=== PATIENT | female | born 1965 | race Caucasian/White ===

== ENCOUNTER 2016-09-14 10:44 | Inpatient (IN) | payer OTHER, MEDICAID ==
[~2016-09-14] VITALS: Ht 162.6 cm; Wt 61.7 kg
[2016-09-14 10:52] VITALS: BP 121/68; PULSE 88; RESP 16; TEMP 96.6; O2SAT 99
--- NOTE | 2016-09-14 11:00 | NUR ---
Patient to ER bed 2 to gown for evaluation. Side rails up. Report given to Amadou NAVA.
--- NOTE | 2016-09-14 11:03 | NUR ---
C/O right upper arm redness, 15cm x 10cm fluctuant mass which extends from mid-upper arm to axilla, with surrounding bright red swelling.
--- NOTE | 2016-09-14 11:05 | NUR ---
ER Dr. Chiu at bedside examining patient.
[2016-09-14] MEDS ORDERED: CALC260T7 PO (11:19)
[2016-09-14] MEDS ORDERED: VITD400 PO (11:19)
[2016-09-14] MEDS ORDERED: [UNRECOGNIZED DRUG - CODE] TP (11:22)
[2016-09-14] MEDS ORDERED: MULT PO (11:22)
[2016-09-14] MEDS ORDERED: TYLL650 PO (11:22)
[2016-09-14] MEDS ORDERED: GUAI100S14 PO (11:22)
[2016-09-14 11:31] LABS: EOSINOPHILS % (AUTO) 0.1 % (0.0-4.0); HEMATOCRIT 41.5 % (36-48); HEMOGLOBIN 13.6 g/dL (12.0-16.0); LYMPHOCYTES # (AUTO) 1.4 K/uL (1.0-5.5); LYMPHOCYTES % (AUTO) 10.6 % (20.5-51.5); MEAN CORPUSCULAR HEMOGLOBIN 31 pg (27-31); MEAN CORPUSCULAR HGB CONC 33 % (32-36); MEAN CORPUSCULAR VOLUME 94 fL (79.0-98.0); MONOCYTES # (AUTO) 0.9 K/uL (0.0-1.0); PLATELET COUNT (AUTO) 369 K/uL (130-430); RED CELL DISTRIBUTION WIDTH 11.7 % (9.0-15.0); WHITE BLOOD COUNT (AUTO) 12.8 K/uL (4.8-10.8)
[2016-09-14 11:32] LABS: CREATININE 0.64 mg/dL (0.55-1.30); POTASSIUM 3.6 mmol/L (3.5-5.1)
[2016-09-14 11:35] LABS: INR 1.1 (0.8-1.2); PROTHROMBIN TIME 11.8 SECS (9.5-12.5)
[2016-09-14 11:36] LABS: ALBUMIN 3.6 g/dL (3.4-4.8); TOTAL BILIRUBIN 0.4 mg/dL (0.0-1.0); TOTAL PROTEIN, SERUM 8.2 g/dL (6.4-8.3)
[2016-09-14 11:37] LABS: NEUTROPHILS # (AUTO) 10.5 K/uL (1.8-7.7); NEUTROPHILS % (AUTO) 82.3 % (40.0-70.0)
--- NOTE | 2016-09-14 11:40 | NUR ---
Medication reconciliation completed based upon medication list provided by caregiver.
[2016-09-14] MEDS ORDERED: CLINDAMYCIN 600 mg/50mL D5W 50 ML IV ONE (12:15)
--- NOTE | 2016-09-14 12:35 | NUR ---
# 20 gauge angiocath placed to RFA. Use of asceptic technique. Opsite placed over site. Blood return noted. Flushed with 10 cc of normal saline. No evidence of infiltration noted. Patient tolerated well.
--- NOTE | 2016-09-14 12:57 | NUR ---
Lab at bedside to draw Blood Cultures and Lactic Acid prior to start of antibiotics.
--- NOTE | 2016-09-14 13:13 | NUR ---
Delay to floor r/t difficult time getting IV access and lab stick.
--- NOTE | 2016-09-14 13:40 | NUR ---
Patient will be admitted to care of Dr. Reed. Admitted to Med/Surg unit. Will go to room 111. Belongings list completed. Summary report printed. Bedside report given to receiving RN.
--- NOTE | 2016-09-14 13:50 | NUR ---
ADMISSION: The patient, AR MONTAÑO, 51 y/o, F admitted by JAMIA HUNTLEY MD, was given written information regarding hospital policies, unit procedures and contact persons. Valuables were checked and REVIEWED.
[2016-09-14 13:55] VITALS: BP 125/83; PULSE 89; RESP 18; TEMP 97.8; O2SAT 95
--- NOTE | 2016-09-14 14:00 | NUR ---
INITIAL ASSESSMENT: SEEN PATIENT.WITH SISTER AT BEDSIDE.NON VERBAL,IV SALINE LOCK. REDNESS AT RIGHT INNER ARM. CONTINUE TO MONITOR.
[2016-09-14] MEDS ORDERED: ACETAMINOPHEN 650 MG/20.3 ML UDC PO PRN (14:15)
[2016-09-14] MEDS ORDERED: guaiFENesin 200 MG/10 ML UDC PO PRN (14:15)
--- NOTE | 2016-09-14 16:00 | NUR ---
ROUNDS: RESTING. STABLE.
[2016-09-14 16:45] VITALS: BP 115/63; PULSE 77; RESP 17; TEMP 98.6; O2SAT 98
--- NOTE | 2016-09-14 18:15 | NUR ---
MS ROUNDS: PATIENT SEEN BY DR HUNTLEY WITH ORDERS TO START LR AT 80CC/H AND IV UNASYN .FOR SURGICAL CONSULT C/O DR MONACO FOR ABSCESS RIGHT INNER BICEPS.FOR XRAY ,EKG AND BLOOD TEST IN AM.
--- NOTE | 2016-09-14 18:19 | NUR ---
SURGICAL CONSULT Spoke with Dr. Delfino louise ([phone]) for reason: abscess. Transferred call to BRANDY Dove.
[2016-09-14] MEDS ORDERED: DEXTROSE 50% JECT 50 ML DISP.SYRIN IVP PRN (18:30)
[2016-09-14] MEDS ORDERED: INSULIN REGULAR, HUMAN 100 UNITS/ML, 10 ML VIAL (novoLIN R) SUBCUT PRN (18:30)
--- NOTE | 2016-09-14 19:00 | NUR ---
CLOSING NOTES: SLEEPING DURING ROUNDS. STABLE. NO DISTRESS.
[2016-09-14 19:55] VITALS: BP 131/68; PULSE 81; RESP 18; TEMP 97; O2SAT 96
[2016-09-14] MEDS: LR 1,000 ML IV SCH (19:56)
[2016-09-14] MEDS: AMPICILLIN SODIUM/SULBACTAM NA 3 GM in NS 100 ML IV SCH (19:57)
--- NOTE | 2016-09-14 20:00 | NUR ---
NOTES; SEEN PT IN BED, EYES CLOSED. BILATERAL EYES BLINDNESS. RESPONSIVE TO TOUCH. NO ACUTE DISTRESS NOTED. VITAL SIGNS STABLE, AFEBRILE. CONTRACTED TO MARSHALL UPPER EXT. RT UPPER ARM CELLULITIS WITH REDNESS, WARM TO TOUCH. IV SALINE LOCK TO THE RT FOREARM. ORDERED IVF TO INFUSED. NO FACIAL GRIMACING OF PAIN NOTED. BED LOCKED AND IN LOW POSITION, SIDE RAILS UP X3, CALL LIGHT WITHIN REACH.
[2016-09-14] MEDS: LACTOBACILLUS RHAMNOSUS GG 1 CAP CAPSULE PO SCH (21:31)
[2016-09-14] MEDS: CALCIUM CARBONATE 650 MG TABLET PO SCH (21:31)
[2016-09-14] MEDS: ENOXAPARIN SODIUM 40 MG/0.4 ML SYRINGE SUBCUT SCH (21:32)
--- NOTE | 2016-09-14 21:39 | NUR ---
NOTES; SCHEDULED PO MEDICATION CRUSHED AND ADMINISTERED WITH APPLE SAUCE. PT TOLERATED MEDS WELL.
--- NOTE | 2016-09-14 23:15 | NUR ---
NOTES; INCONTINENT OF URINE. TOTAL BED BATH GIVEN, LINEN CHANGED. REPOSITIONED. SAFETY MEASURES IN PROGRESS.
[2016-09-15 00:14] VITALS: BP 101/50; PULSE 71; RESP 18; TEMP 98.4; O2SAT 99
[2016-09-15] MEDS: AMPICILLIN SODIUM/SULBACTAM NA 3 GM in NS 100 ML IV SCH ×5 (00:48→23:12)
--- NOTE | 2016-09-15 01:30 | NUR ---
NOTES; APPEARED TO BE SLEEPING, EYES CLOSED, RESPIRATION EVEN AND UNLABORED. NO ACUTE DISTRESS NOTED. NO FACIAL GRIMACING OF PAIN NOTED, REPOSITIONED. SAFETY MEASURES IN PROGRESS.
--- NOTE | 2016-09-15 03:30 | NUR ---
NOTES; APPEARED TO BE SLEEPING, EYES CLOSED, RESPIRATION EVEN AND UNLABORED. NO ACUTE DISTRESS NOTED. NO FACIAL GRIMACING OF PAIN NOTED, REPOSITIONED. SAFETY MEASURES IN PROGRESS.
[2016-09-15 05:11] VITALS: BP 107/56; PULSE 82; RESP 16; TEMP 97.9; O2SAT 97
--- NOTE | 2016-09-15 05:38 | NUR ---
NOTES; IV ON THE RT HAND OCCLUDED. OLD IV REMOVED WITH CATHETER TIP INTACT. NEW IV PLACED ON THE LEFT FOREARM, GAUGE 22. ORDERED IVF RESUMED. PT TOLERATED IV INSERTION WELL.
--- NOTE | 2016-09-15 07:20 | NUR ---
Initial notes: pt on bed resting. no distress noted. i.v. access patent. report received at bedside.
[2016-09-15 07:56] LABS: CALCIUM 8.3 mg/dL (8.4-11.0); CREATININE 0.57 mg/dL (0.55-1.30); POTASSIUM 3.9 mmol/L (3.5-5.1)
[2016-09-15 08:00] VITALS: BP 140/92; PULSE 77; RESP 16; TEMP 96.6; O2SAT 99
[2016-09-15 08:11] LABS: BASOPHILS % (AUTO) 0.4 % (0.0-2.0); EOSINOPHILS % (AUTO) 0.4 % (0.0-4.0); HEMATOCRIT 34.8 % (36-48); MEAN CORPUSCULAR HEMOGLOBIN 32 pg (27-31); MEAN CORPUSCULAR HGB CONC 34 % (32-36); MEAN CORPUSCULAR VOLUME 93 fL (79.0-98.0); MONOCYTES % (AUTO) 9.8 % (1.7-9.3); NEUTROPHILS # (AUTO) 7.2 K/uL (1.8-7.7); NEUTROPHILS % (AUTO) 69.4 % (40.0-70.0); PLATELET COUNT (AUTO) 282 K/uL (130-430); RED BLOOD CELL COUNT(AUTO) 3.74 MIL/uL (4.2-6.2); RED CELL DISTRIBUTION WIDTH 12.1 % (9.0-15.0); WHITE BLOOD COUNT (AUTO) 10.2 K/uL (4.8-10.8)
[2016-09-15] MEDS: LACTOBACILLUS RHAMNOSUS GG 1 CAP CAPSULE PO SCH ×2 (08:52→21:46)
[2016-09-15] MEDS: CHOLECALCIFEROL (VITAMIN D3) 2,000 UNIT TABLET PO SCH (08:52)
[2016-09-15] MEDS: MULTIVITAMINS TAB 1 TABLET PO SCH (08:53)
[2016-09-15] MEDS: CALCIUM CARBONATE 650 MG TABLET PO SCH ×2 (08:53→21:46)
[2016-09-15] MEDS ORDERED: TRIAMCINOLONE ACETONIDE 0.025% 15 GM CREAM.GM. TP SCH (09:00)
[2016-09-15] MEDS ORDERED: FLUOCINOLONE 0.01% TP SCH (09:00)
--- NOTE | 2016-09-15 09:01 | NUR ---
rounds: pt on bed awake. medication given with león. sister at bedside. plan of care discussed.
[2016-09-15] MEDS: LR 1,000 ML IV SCH ×2 (10:36→21:45)
--- NOTE | 2016-09-15 11:41 | NUR ---
rounds: pt sleeping. stable. sister at bedside.
[2016-09-15 12:50] VITALS: BP 109/67; PULSE 86; RESP 16; TEMP 96.4; O2SAT 99
--- NOTE | 2016-09-15 14:00 | NUR ---
room transfer: pt transferred to other room due to room mate isolation precaution. pt sister informed.
--- NOTE | 2016-09-15 16:49 | NUR ---
rounds: pt sleeping. no distress noted.
[2016-09-15 17:10] VITALS: BP 119/70; PULSE 84; RESP 17; TEMP 97.9; O2SAT 97
--- NOTE | 2016-09-15 18:00 | NUR ---
rounds: pt having dinner with feeding assist by OFFICE SUPPORT ASSISTANT. no distress noted.
--- NOTE | 2016-09-15 18:49 | NUR ---
closing notes: pt on bed resting. stable. needs attended. safety measures in placed. Report will be given at bedside.
--- NOTE | 2016-09-15 19:15 | NUR ---
OPENING NOTES PATIENT IS RESTING COMFORTABLY. EYES OPEN, ALERT TO NAME, TRACKS, NON-VERBAL. NO SIGNS OR SYMPTOMS OF ACUTE DISTRESS NOTED. IV PATENT AND INFUSING. BED IN LOWEST POSITION, BED ALARM ON, CALL LIGHT WITHIN REACH. WILL CONTINUE TO MONITOR.
[2016-09-15 20:10] VITALS: BP 124/54; PULSE 73; RESP 16; TEMP 98; O2SAT 94
--- NOTE | 2016-09-15 20:45 | NUR ---
DR MONACO CALLED SPOKE TO DR. MOANCO, HE ORDERED A DRAINING PROCEDURE FOR HER ABCESS FOR 09/16/16.
[2016-09-15] MEDS: ENOXAPARIN SODIUM 40 MG/0.4 ML SYRINGE SUBCUT SCH (21:46)
--- NOTE | 2016-09-15 22:10 | NUR ---
ROUNDS PATIENT IS SLEEPING COMFORTABLY WITH VISIBLE RISE AND FALL OF CHEST NOTED. NO SIGNS OR SYMPTOMS OF ACUTE DISTRESS NOTED. IV PATENT AND INFUSING. BED IN LOWEST POSITION, BED ALARM ON, CALL LIGHT WITHIN REACH. WILL CONTINUE TO MONITOR.
[2016-09-16] VITALS (13 sets, daily range): BP systolic 83–149; BP diastolic 51–76; PULSE 68–76; RESP 16–19; TEMP 97.2–98.3; O2SAT 92–99; Ht 162.6 cm; Wt 61.7 kg
--- NOTE | 2016-09-16 00:40 | NUR ---
ROUNDS PATIENT IS SLEEPING COMFORTABLY IN SEMI-FOWLERS POSITION, WITH VISIBLE RISE AND FALL OF CHEST NOTED. NO SIGNS OR SYMPTOMS OF ACUTE DISTRESS NOTED. IV PATENT AND INFUSING. BED IN LOWEST POSITION, BED ALARM ON, CALL LIGHT WITHIN REACH. WILL CONTINUE TO MONITOR.
--- NOTE | 2016-09-16 03:43 | NUR ---
ROUNDS PATIENT IS SLEEPING COMFORTABLY IN SEMI-PANDYA'S POSITION, WITH VISIBLE RISE AND FALL OF CHEST NOTED. NO SIGNS OR SYMPTOMS OF ACUTE DISTRESS NOTED. IV PATENT AND INFUSING. BED IN LOWEST POSITION, BED ALARM ON, CALL LIGHT WITHIN REACH. WILL CONTINUE TO MONITOR.
[2016-09-16] MEDS: AMPICILLIN SODIUM/SULBACTAM NA 3 GM in NS 100 ML IV SCH ×4 (05:45→18:24)
--- NOTE | 2016-09-16 05:55 | NUR ---
ROUNDS PATIENT IS SLEEPING COMFORTABLY IN SEMI-PANDYA'S POSITION, WITH VISIBLE RISE AND FALL OF CHEST NOTED. NO SIGNS OR SYMPTOMS OF ACUTE DISTRESS NOTED. IV PATENT AND INFUSING, SITE REVISED AND FLUSHES WELL. BED IN LOWEST POSITION, BED ALARM ON, CALL LIGHT WITHIN REACH. WILL CONTINUE TO MONITOR.
--- NOTE | 2016-09-16 06:33 | NUR ---
DR HUNTLEY PAGED LEFT MESSAGE FOR DR. HUNTLEY REGARDING LAB RESULT RECEIVED AT 0627 FROM ANGELLA IN LAB.
--- NOTE | 2016-09-16 06:46 | NUR ---
DR. HUNTLEY PAGED SECOND PAGE TO DR. HUNTLEY
--- NOTE | 2016-09-16 06:50 | NUR ---
DR. HUNTLEY RETURNED CALL AND PLACED T/O
[2016-09-16] MEDS: LR 1,000 ML IV SCH ×2 (07:45→20:15)
--- NOTE | 2016-09-16 07:50 | NUR ---
CLOSING NOTE GAVE REPORT AT BEDSIDE TO DAY SHIFT NURSE. ENDORSED CARE OF VANCO ORDER, FINALIZE OF SURGICAL CHECKLIST AND CONSENT WITH FAMILY. PATIENT IS AWAKE WITH EYES OPEN RESTING IN SEMI-PANDYA'S POSITION. IV PATENT AND INFUSING, NO SIGNS OF INFILTRATION NOTED. NO S/S OF DISTRESS NOTED. BED IN LOWEST POSITION, BED ALARM ON, CALL LIGHT WITHIN REACH. WILL ENDORSE CARE TO DAY SHIFT.
--- NOTE | 2016-09-16 08:00 | NUR ---
OPENING NOTES PT IS RESTLESS AND PULLED AWAY FROM ME WHEN I WAS TAKING HER VITALS. SHE IS A&O X 1 SHE REACTS TO HER NAME. SHE IS NON-VERBAL AND BLIND, BUT SHE TRACES I MOVE FROM ONE SIDE OF THE BED TO THE OTHER. VS STABLE, IV PATENT AND PATIENT IS CLEAN.. I DO NOT FEEL COMFORTABLE WITH HER ABILITY TO USE THE CALL LIGHT, BUT BED ALARM IS SET AND BED IS IN LOWEST POSITION
--- NOTE | 2016-09-16 08:17 | NUR ---
PATIENTS SISTER SANFORD AT BEDSIDE WAITING FOR DR MONACO TO SPEAK TO HER FOR INFORMED CONSENT.
[2016-09-16] MEDS: MULTIVITAMINS TAB 1 TABLET PO SCH (09:00)
[2016-09-16] MEDS: CALCIUM CARBONATE 650 MG TABLET PO SCH ×2 (09:00→21:36)
[2016-09-16] MEDS: LACTOBACILLUS RHAMNOSUS GG 1 CAP CAPSULE PO SCH ×2 (09:00→21:36)
[2016-09-16] MEDS: CHOLECALCIFEROL (VITAMIN D3) 2,000 UNIT TABLET PO SCH (09:00)
--- NOTE | 2016-09-16 09:38 | NUR ---
Nutrition Update Lazaro Scale 10 noted. Pt admitted for cellulitis. Diet: NPO BMI: 23.3 kg/m2 RD to follow per nutrition care standards.
--- NOTE | 2016-09-16 10:54 | NUR ---
DR MONACO AT BEDSIDE DR. SANCHEZ AT BEDSIDE INFORMED CONSENT RECEIVED AND SIGNED BY PT SISTER, SANFORD
--- NOTE | 2016-09-16 10:55 | NUR ---
PT TRANSPORTED IN BED TO SURGERY, SISTER ACCOMPANYING
--- NOTE | 2016-09-16 10:57 | NUR ---
DR Saleh notified that we do not have any UA on file, and that per family, due to autism, she does not tolerate catheter insertion unless she is mildly sedated which is what they do at her PCP No need for UA per Dr Saleh.
[2016-09-16] MEDS ORDERED: VANCOMYCIN HCL 750 MG in NS 250 ML IV SCH (11:00)
[2016-09-16] MEDS ORDERED: LR 1,000 ML IV SCH (11:22)
[2016-09-16] MEDS ORDERED: HYDROmorphone 2 MG/ML VIAL IVP PRN ×2 (11:30)
[2016-09-16] MEDS ORDERED: ONDANSETRON HCL 4 MG/2 ML VIAL IVP PRN (11:30)
[2016-09-16] MEDS ORDERED: MEPERIDINE HCL/PF 25 MG/ML DISP.SYRIN IVP PRN ×2 (11:30)
[2016-09-16] MEDS ORDERED: HYDROmorphone 1 MG INJ. 1 MG/ML AMPUL IVP PRN (11:30)
--- NOTE | 2016-09-16 12:30 | NUR ---
PT RETURNED TO BED FROM SURGERY VS STABLE AND SET TO CHECK IN 15 MINUTES, THEN 30 MINUTES X 2. PT LUNGS CLEAR AND PULSES ARE STRONG
[2016-09-16] MEDS ORDERED: PROPOFOL 200MG/ 20ML VIAL (DIPRIVAN) IV ONE (14:00)
[2016-09-16] MEDS ORDERED: SEVOFLURANE 15 MIN GAS INH ONE (14:00)
[2016-09-16] MEDS ORDERED: MIDAZOLAM HCL 5 MG/5 ML VIAL ONE (14:00)
[2016-09-16] MEDS ORDERED: MEPERIDINE HCL/PF 100 MG/ML AMP ONE (14:00)
[2016-09-16] MEDS ORDERED: LR 1,000 ML IV.SOLN IV ONE (14:00)
--- NOTE | 2016-09-16 14:00 | NUR ---
ROUNDS PT IN BED, SLEEPING. BED ALARM SET AND IN THE LOWEST POSITION
--- NOTE | 2016-09-16 16:00 | NUR ---
ROUNDS PT IN BED, STILL AWAKE BUT QUIET AND APPEARS COMFORTABLE
--- NOTE | 2016-09-16 16:03 | NUR ---
Social Service Note: MASTER FISHER received a call from Kayode Arrieta ([phone]) from the [facility]; Kayode asked to be update as pt's plan of care develops so that the [facility] can follow patient and make sure her programs/placement resumes when she is able. MASTER FISHER will update [facility] when DC plans are developed. MASTER FISHER will remain available for support and will follow up as needed.
--- NOTE | 2016-09-16 16:15 | NUR ---
Noted IV infiltrated while starting pts Unasyn which was late administration as patient was from surgery. Also noted hives on the area around it. Only medication that had infused was the vanco. IV discontinued. Jayce sutton MD about it.
--- NOTE | 2016-09-16 17:00 | NUR ---
Dr Reed making rounds notified him of hives to the area around the IV. The only medication patient received was the vancomycin . Informed Dr Reed about it. to order Benadryl. Will insert new IV.
[2016-09-16] MEDS ORDERED: MORPHINE 4 MG/ML INJ. SYRINGE IVP PRN (17:45)
[2016-09-16] MEDS ORDERED: DIPHENHYDRAMINE INJ 50 MG/ML VIAL IVP PRN (18:00)
--- NOTE | 2016-09-16 18:00 | NUR ---
ROUNDS/DC IV IV SITE IS NO LONGER PATENT. ATTEMPTED TO START A NEW LINE AT MULTIPLE SITES. CONTACTED DR HUNTLEY, WHO ORDERED A PICC LINE BE INSTALLED
--- NOTE | 2016-09-16 18:00 | NUR ---
IV MED HELD DUE TO LACK OF A PATENT IV SITE. PICC LINE ORDERED
--- NOTE | 2016-09-16 19:00 | NUR ---
CLOSING NOTE PT RESTING COMFORTABLY. VS IS STABLE. REPORT ENDORSED AT BEDSIDE ABOUT THE NEW ORDER TO HAVE A PICC LINE INSTALLED AND THAT IV MEDS HAVE BEEN HELD
--- NOTE | 2016-09-16 19:15 | NUR ---
change of shift.pt's intial assessment.apprised that pt.presents blind status.pt.is non verbal.2 attempt to reestablish an iv access line.picc line is ordered 2 communicate w/str;genoveva gunter 4 consent.room air pt.stable,calm.call light w/in pt's reach.
[2016-09-16 19:57] LABS: INR 1.1 (0.8-1.2); PROTHROMBIN TIME 11.7 SECS (9.5-12.5)
--- NOTE | 2016-09-16 20:00 | NUR ---
pt.assessed.v/s assessed.will attempt 2 reestablish an iv access.2 communicate w/str;genoveva gunter 4 consent: picc line placement.pt.repositioned.blankets;warmed applied upon pt.no distress/discomfort manifested.
--- NOTE | 2016-09-16 21:00 | NUR ---
2100p medications administered.no distress/discomfort manifested.
[2016-09-16] MEDS: ENOXAPARIN SODIUM 40 MG/0.4 ML SYRINGE SUBCUT SCH (21:38)
--- NOTE | 2016-09-16 22:00 | NUR ---
pt.assessed.pt.repositioned.pt.cleaned.blankets reapplied upon pt.call light placed w/in pt's reach.no distress/discomfort manifested.
--- NOTE | 2016-09-16 23:00 | NUR ---
i have reestablished an iv access line.have reconnected&continued the adminstration of the iv fluids. call nila w/in pt's rech.blankets reapplid upon pt.
--- NOTE | 2016-09-17 | NUR ---
pt.assessed.v/s assessed:values w/in normal limits.pt.repositioned.iv fluids infusing. blankets reapplied upon pt.call light placed w/in pt's reach. Addendum: 09/17/16 at 0333 by Nicholas Pinto RN no distress/discomfort manifested.
[2016-09-17 00:01] VITALS: BP 118/76; PULSE 73; RESP 16; TEMP 97.1; O2SAT 96
[2016-09-17] MEDS: AMPICILLIN SODIUM/SULBACTAM NA 3 GM in NS 100 ML IV SCH ×4 (00:12→17:04)
--- NOTE | 2016-09-17 02:00 | NUR ---
pt.assessed.pt.repositioned.iv fluids infusing.no discomfort/distress manifested. call light placed w/in pt's reach.
[2016-09-17 04:00] VITALS: BP 117/75; PULSE 71; RESP 16; TEMP 96.9; O2SAT 96
--- NOTE | 2016-09-17 04:00 | NUR ---
pt.assessed.v/s assessed:values w/in normal limits.pt.repositioned.no distress/discomfort manifested. iv fluids infusing.call light w/in pt's reach.
--- NOTE | 2016-09-17 06:00 | NUR ---
pt.assessed.pt.cleaned,blankets applied.pt.repositioned.rt.arm wound dsg saturated:clean,iodoform packing inserted,gauze applied w/ kerlix band.iv fluids infusing.blood glucose assessed:94mg/dl.call light placed w/in pt's reach.
[2016-09-17 07:22] LABS: BASOPHILS % (AUTO) 0.3 % (0.0-2.0); EOSINOPHILS # (AUTO) 0.1 K/uL (0.0-0.4); HEMATOCRIT 36.9 % (36-48); HEMOGLOBIN 12.6 g/dL (12.0-16.0); LYMPHOCYTES # (AUTO) 2.6 K/uL (1.0-5.5); LYMPHOCYTES % (AUTO) 43.2 % (20.5-51.5); MEAN CORPUSCULAR HEMOGLOBIN 32 pg (27-31); MEAN CORPUSCULAR HGB CONC 34 % (32-36); MEAN CORPUSCULAR VOLUME 92 fL (79.0-98.0); MONOCYTES # (AUTO) 0.7 K/uL (0.0-1.0); NEUTROPHILS # (AUTO) 2.7 K/uL (1.8-7.7); NEUTROPHILS % (AUTO) 43.5 % (40.0-70.0); PLATELET COUNT (AUTO) 356 K/uL (130-430); RED BLOOD CELL COUNT(AUTO) 4.01 MIL/uL (4.2-6.2); RED CELL DISTRIBUTION WIDTH 11.4 % (9.0-15.0); WHITE BLOOD COUNT (AUTO) 6.1 K/uL (4.8-10.8)
--- NOTE | 2016-09-17 07:30 | NUR ---
OPENING NOTE RECEIVED REPORT AT BEDSIDE. VITAL SIGNS ARE STABLE: HER BLOOD PRESSURE IS LOW BUT THIS IS NORMAL FOR HER. IV FLUSHES AND SHE DOES NOT APPEAR TO BE IN PAIN OR UNCOMFORTABLE. WILL CONTINUE TO MONITOR HER BP
[2016-09-17 07:37] LABS: CALCIUM 8.5 mg/dL (8.4-11.0); CREATININE 0.56 mg/dL (0.55-1.30); POTASSIUM 3.5 mmol/L (3.5-5.1)
[2016-09-17 08:00] VITALS: BP 121/68; PULSE 88; RESP 16; TEMP 96.3; O2SAT 95
[2016-09-17] MEDS: CALCIUM CARBONATE 650 MG TABLET PO SCH (08:23)
[2016-09-17] MEDS: CHOLECALCIFEROL (VITAMIN D3) 2,000 UNIT TABLET PO SCH (08:23)
[2016-09-17] MEDS: LACTOBACILLUS RHAMNOSUS GG 1 CAP CAPSULE PO SCH (08:24)
[2016-09-17] MEDS: MULTIVITAMINS TAB 1 TABLET PO SCH (08:24)
[2016-09-17] MEDS: LR 1,000 ML IV SCH (08:45)
--- NOTE | 2016-09-17 09:27 | NUR ---
DISCHARGE PLANNING DC planning order to arrange home health. Called and spoke with patient sister Dea [facility] [phone] who requested patient discharge to SNF prior to returning back to [facility]. Confirmed with Dea preferred SNF that was discussed with SHEYLA Crystal. SHEYLA made aware. Addendum: 09/17/16 at 0932 by Lynette STEINER Per SHEYLA Malin requested placement at [facility] or [facility]. Faxed SNF referrals will follow up on bed availability. Addendum: 09/17/16 at 1158 by Lynette STEINER Received call from patient sister Dea who is agreeable with patient discharge back to [facility] with home health. Dea advised [facility] to call patient nurse Sakshi [phone] to make home health arrangements. Called and spoke with patient nurse Sakshi who stated facility did not have preference in home health and requested she be contracted to make visit arrangements. Faxed [facility] spoke with Antonieta in intake dept who confirmed faxed referral was received and nursing staff will call Sakshi to make visit arrangements. Antonieta was provided with Sakshi contract number to make visit arrangements. BRANDY Martinez made aware patient nurse Sakshi at [facility] able to arrange transportation for patient discharge and requested to be notified [phone] or for time patient ready to be discharged. Addendum: 09/17/16 at 1459 by Lynette STEINER DC order to SNF. Spoke with Zack at [facility] patient accepted assigned to room 21A bed available anytime. Called and spoke with patient sister Dea who is agreeable with patient discharge to SNF and did want placement at [facility] as it is [place] from her residence. Dea did not need call back with time ambulance will be arranged and suggested ambulance be arranged after dinner. Dea was made aware of Medical IM letter and understood its purpose. BRANDY Claudio made aware. Called [facility] [phone] spoke with Mary Jane arranged BLS transport picking belt operator 6pm. Placed transportation packet in nurse station.
--- NOTE | 2016-09-17 10:00 | NUR ---
ROUNDS PT IS STABLE AND APPEARS COMFORTABLE. BED ALARM IS SET AND THE BED IS IN THE LOWEST POSITION.
--- NOTE | 2016-09-17 12:00 | NUR ---
ROUNDS PT IS SLEEPING. BED IN LOWEST POSITION AND BED ALARM IS ARMED
[2016-09-17 12:28] VITALS: BP 101/68; PULSE 70; RESP 16; TEMP 96; O2SAT 98
--- NOTE | 2016-09-17 14:00 | NUR ---
ROUNDS PT APPEARS COMFORTABLE AND RELAXED. BED IN LOWEST POSITION AND BED ALARM IS ON
--- NOTE | 2016-09-17 16:00 | NUR ---
WOUND EVALUATION: Wound Consult received from Dr. Reed. Thank you, Dr. Reed, for the consult. Patient received in a Camron Bed with an IsoFlex SASCHA mattress, awake, alert, and confused. Patient is unable to turn independently. Lazaro Score is an 11. Past Medical History: Cerebral Palsy, bed bound, and Profound Intellectual Disability. Recent Labs: WBC 6.1, RBC 4.01, Hgb 12.6, Hct 36.9, BUN 4, Creat 0.56, Gluc 105, Alb 3.6. Intrinsic factors that delay wound healing:Hyperglycemia. Extrinsic factors that delay wound healing: Decreased mobility. Microbiology: Blood Culture in progress. Wound Culture positive for Proteus Mirabilis, Gram Stain pending. MRSA Screen negative. Wound Assessment: 1) Right Medial Proximal Tricep: Abscess, present on admission. Wound bed is 100% pink tissue. No odor, scant sanguineous drainage. Liz-wound intact. Surrounding tissue erythematous and indurated. Measures 0.5 cm x 2.0 cm x 2.0 cm. Undermining present from 10-3 o'clock, deepest 4.3 cm at 11 o'clock. Surrounding tissue indurated. Recommend: Cleanse wound with normal saline. Place SurePrep onto liz-wound. Put Hydrogel into wound bed. Pack with 1/4 inch Iodoform packing strip. Cover with foam dressing. Perform wound care daily, and as needed for dressing soiling or dislodgement. Also recommend: Reposition patient every 2 hours with pillow support and off-load pressure areas with pillows for pressure re-distribution. Offload, elevate and float bilateral heels with pillows. Perform skin care and monitor skin integrity Q shift. Use moisture barrier cream on buttocks and other moisture susceptible areas QID and as needed for soiling. Place patient on a low air-loss mattress.
[2016-09-17 16:33] VITALS: BP 119/72; PULSE 81; RESP 17; TEMP 98; O2SAT 97
--- NOTE | 2016-09-17 16:36 | NUR ---
D/C REPORT GIVEN REPORT ENDORSED OVER THE PHONE TO BOB AT [facility] IN [place] @[phone]. I WILL ADMIN LAST DOSE OF IV ANTIBIOTICS TO PT PRIOR TO HER 1800 SCHEDULED TRANSPORTATION PT TRANSFERRED.
--- NOTE | 2016-09-17 18:00 | NUR ---
ROUNDS PT CLEAN AND READY FOR TRANSPORT IV FLUSHED AND CAPPED, GARDEN RICHARD HAS REQUESTED WE KEEP IV IN PLACE DURING TRANSPORT
--- NOTE | 2016-09-17 19:25 | NUR ---
PT DISCHARGED REPORT ENDORSED TO TRANSPORT, PT TRANSPORTED TO [facility]
== END 2016-09-17 19:25 | DRG 602 ==
LOC: SED 10:44 → SMU 12:03
PROVIDERS: ADMIT Internal Medicine; ATTEND Internal Medicine
PROC: 0X940ZZ Drainage of Right Axilla, Open Approach (ICD-10-PCS; principal; 2016-09-14)
DX: L03.111 Cellulitis of right axilla (principal); G82.50 Quadriplegia, unspecified; L02.413 Cutaneous abscess of right upper limb; G80.9 Cerebral palsy, unspecified; F79 Unspecified intellectual disabilities; B96.4 Proteus (mirabilis) (morganii) as the cause of diseases classified elsewhere; Z74.01 Bed confinement status; Z79.899 Other long term (current) drug therapy
CPT/HCPCS: 36415; 71010; 73060-TC; 80048; 80053; 82962; 83036; 83605; 85025; 85610-TC; 85730-TC; 87040-TC; 87070; 87070-TC; 87075-TC; 87081; 87186-TC; 93005; 96365; 99285; J0295; J1200; J1650; J1815; J2175; J2250; J2270; J2704; J3370; J3490; J7050; J7120